=== PATIENT | male | born 1960 | race Hispanic/Latino ===

== ENCOUNTER 2020-08-11 06:04 | Emergency (ER) | payer MEDICARE ==
[2020-08-11 06:25] VITALS: BP 131/76
[2020-08-11] MEDS ORDERED: dexAMETHasone 20 MG/5 ML VIAL IM ONE (06:42)
[2020-08-11] MEDS ORDERED: IBUPROFEN ORAL LIQD 100 MG/5 ML ORAL.LIQD PO ONE (06:43)
--- NOTE | 2020-08-11 06:59 | Emergency Department Report ---
ED ENT HPI - General Chief complaint: Sore Throat Stated complaint: SWOLLEN THROAT Time Seen by Provider: 08/11/20 06:55 Source: patient Mode of arrival: Stretcher Limitations: No Limitations - History of Present Illness Initial comments: Patient 60-year-old male who presents for sore throat x3 days. Patient denies fevers or chills. States 510 burning pain with swallowing. There is no wheezing no stridor. No nausea vomiting. This is a recurrent problem for this patient MD complaint: sore throat - Related Data Previous Rx's Medication Instructions Recorded Last Taken Type Amoxicillin/Potassium Clav 1 each PO BID 10 Days #20 tablet 08/11/20 Unknown Rx [Augmentin 875-125 Tablet] Ibuprofen [Motrin 800 MG tab] 800 mg PO Q8HR PRN #30 tablet 08/11/20 Unknown Rx predniSONE [Deltasone] 40 mg PO DAILY 5 Days #10 tablet 08/11/20 Unknown Rx Allergies Allergy/AdvReac Type Severity Reaction Status Date / Time morphine Allergy Diarrhea Verified 08/11/20 06:26 ED Dental HPI - General Chief complaint: Sore Throat Stated complaint: SWOLLEN THROAT Time Seen by Provider: 08/11/20 06:55 Source: patient Mode of arrival: Stretcher Limitations: No Limitations - Related Data Previous Rx's Medication Instructions Recorded Last Taken Type Amoxicillin/Potassium Clav 1 each PO BID 10 Days #20 tablet 08/11/20 Unknown Rx [Augmentin 875-125 Tablet] Ibuprofen [Motrin 800 MG tab] 800 mg PO Q8HR PRN #30 tablet 08/11/20 Unknown Rx predniSONE [Deltasone] 40 mg PO DAILY 5 Days #10 tablet 08/11/20 Unknown Rx Allergies Allergy/AdvReac Type Severity Reaction Status Date / Time morphine Allergy Diarrhea Verified 08/11/20 06:26 ED Review of Systems ROS: Stated complaint: SWOLLEN THROAT Other details as noted in HPI Constitutional: malaise Eyes: denies: eye pain, eye discharge, vision change ENT: throat pain Respiratory: denies: cough, shortness of breath, wheezing Cardiovascular: denies: chest pain, palpitations Endocrine: no symptoms reported Gastrointestinal: denies: abdominal pain, nausea, vomiting, diarrhea Genitourinary: denies: urgency, dysuria, frequency, discharge Musculoskeletal: denies: back pain, joint swelling, arthralgia Skin: denies: rash, lesions Neurological: denies: headache, weakness, paresthesias Psychiatric: denies: anxiety, depression Hematological/Lymphatic: denies: easy bleeding, easy bruising ED Past Medical Hx - Past Medical History Previous Medical History?: Yes Hx Hypertension: Yes Hx COPD: Yes - Surgical History Hx Cholecystectomy: Yes - Social History Smoking Status: Current Every Day Smoker Substance Use Type: None - Medications Home Medications: Home Medications Medication Instructions Recorded Confirmed Last Taken Type Amoxicillin/Potassium Clav 1 each PO BID 10 Days #20 tablet 08/11/20 Unknown Rx [Augmentin 875-125 Tablet] Ibuprofen [Motrin 800 MG tab] 800 mg PO Q8HR PRN #30 tablet 08/11/20 Unknown Rx predniSONE [Deltasone] 40 mg PO DAILY 5 Days #10 tablet 08/11/20 Unknown Rx ED Physical Exam - General Limitations: No Limitations General appearance: alert, in no apparent distress - Head Head exam: Present: atraumatic, normocephalic - Eye Eye exam: Present: normal appearance, EOMI Pupils: Present: normal accommodation - ENT ENT exam: Present: mucous membranes moist, TM's normal bilaterally, normal external ear exam - Expanded ENT Exam Expanded Throat exam: Positive: tonsillar erythema, tonsillomegaly, tonsillar exudate, other (uvula midline no stridor no wheezing ). Negative: R peritonsillar mass, L peritonsillar mass - Neck Neck exam: Present: normal inspection, full ROM, lymphadenopathy. Absent: tenderness - Respiratory Respiratory exam: Present: normal lung sounds bilaterally. Absent: respiratory distress, wheezes, stridor, chest wall tenderness - Cardiovascular Cardiovascular Exam: Present: regular rate, normal rhythm, normal heart sounds. Absent: systolic murmur, diastolic murmur, rubs, gallop - GI/Abdominal GI/Abdominal exam: Present: soft, normal bowel sounds. Absent: distended, tenderness, bruit, hernia - Rectal Rectal exam: Present: deferred - Extremities Exam Extremities exam: Present: normal inspection, full ROM - Back Exam Back exam: Present: normal inspection, full ROM. Absent: CVA tenderness (R), CVA tenderness (L) - Neurological Exam Neurological exam: Present: alert, oriented X3 - Psychiatric Psychiatric exam: Present: normal affect, normal mood - Skin Skin exam: Present: warm, dry, intact, normal color. Absent: rash ED Course Vital Signs 08/11/20 06:15 Temperature 98 F Pulse Rate 99 H Respiratory 18 Rate Blood Pressure 131/76 O2 Sat by Pulse 96 Oximetry ED Medical Decision Making - Medical Decision Making This is pharyngitis with exudate. No peritonsillar abscess. Plan Augmentin ibuprofen follow-up with primary care doctor in 2 to 3 days patient given referral to ENT in 2 to 3 days., there is no peritonsillar abscess, rapid strep pending, airway is patent there is no stridor no wheezing patient verbalized agreement and understanding with discharge plan, patient DC'd in stable condition at this time Critical care attestation.: If time is entered above; I have spent that time in minutes in the direct care of this critically ill patient, excluding procedure time. ED Disposition Clinical Impression: Pharyngitis Qualifiers: Pharyngitis/tonsillitis etiology: unspecified etiology Qualified Code(s): J02.9 - Acute pharyngitis, unspecified Disposition: DC-01 TO HOME OR SELFCARE Is pt being admited?: No Does the pt Need Aspirin: No Condition: Stable Instructions: Pharyngitis Prescriptions: Amoxicillin/Potassium Clav [Augmentin 875-125 Tablet] 1 each PO BID 10 Days #20 tablet predniSONE [Deltasone] 40 mg PO DAILY 5 Days #10 tablet Ibuprofen [Motrin 800 MG tab] 800 mg PO Q8HR PRN #30 tablet PRN Reason: pain Referrals: DEVANTE OLIVAREZ MD [Staff Physician] - 3-5 Days CHRIS CHAPA MD [Referring] - 3-5 Days Forms: Work/School Release Form(ED) Time of Disposition: 07:03
== END 2020-08-11 07:33 | disposition home or self-care (01) ==
LOC: ED 06:04
DX: J02.9 Acute pharyngitis, unspecified (principal); I10 Essential (primary) hypertension; J44.9 Chronic obstructive pulmonary disease, unspecified; F17.200 Nicotine dependence, unspecified, uncomplicated; Z79.1 Long term (current) use of non-steroidal anti-inflammatories (NSAID); Z79.2 Long term (current) use of antibiotics; Z79.899 Other long term (current) drug therapy; Z88.8 Allergy status to other drugs, medicaments and biological substances
CPT/HCPCS: 96372; 99283; J1100

== ENCOUNTER 2020-10-14 13:47 | Observation (INO) | payer MEDICARE ==
--- NOTE | 2020-10-14 15:31 | Event Note ---
ED Screening Note ED Screening Note: was admitted, left AMA last night wound to right hand, went to OR was supposed to receive IV abx for a couple more days and likely be discharged on IV abx upon chart review This initial assessment/diagnostic orders/clinical plan/treatment(s) is/are subject to change based on patients health status, clinical progression and re- assessment by fellow clinical providers in the ED. Further treatment and workup at subsequent clinical providers discretion. Patient/guardian urged not to elope from the ED as their condition may be serious if not clinically assessed and managed. Initial orders include: labs
[2020-10-14 16:03] LABS: Basophils # (Auto) 0.1 K/mm3 (0.0-0.1); Basophils % (Auto) 0.8 % (0.0-1.8); Eosinophils # (Auto) 0.2 K/mm3 (0.0-0.4); Eosinophils % (Auto) 2.5 % (0.0-4.3); Hematocrit 39.5 % (35.5-45.6); Hemoglobin 13.7 gm/dl (11.8-15.2); Lymphocytes # (Auto) 1.9 K/mm3 (1.2-5.4); Lymphocytes % (Auto) 23.8 % (13.4-35.0); Mean Corpuscular HGB Conc 35 % (32-34); Mean Corpuscular Volume 92 fl (84-94); Monocytes # (Auto) 0.6 K/mm3 (0.0-0.8); Monocytes % (Auto) 7.2 % (0.0-7.3); Platelet Count 305 K/mm3 (140-440); Red Blood Count 4.31 M/mm3 (3.65-5.03); Red Cell Distribution Width 15.3 % (13.2-15.2)
[2020-10-14 16:23] LABS: Alanine Aminotransferase 50 units/L (7-56); Albumin 4.6 g/dL (3.9-5); Blood Urea Nitrogen 10 mg/dL (9-20); Calcium 9.7 mg/dL (8.4-10.2); Hemolysis Index 3
[2020-10-14 16:32] LABS: BUN/Creatinine Ratio 17
[2020-10-14] MEDS ORDERED: VANCOMYCIN/NS 1 GM/250 ML 1 GM/250 ML BAG IV ONE (17:52)
--- NOTE | 2020-10-14 17:52 | Emergency Department Report ---
ED General Adult HPI - General Chief complaint: Extremity Injury, Upper Stated complaint: RT HAND INJURY Time Seen by Provider: 10/14/20 15:30 Source: patient Mode of arrival: Ambulatory Limitations: No Limitations - History of Present Illness Initial comments: Patient is 60 years old male with history of hypertension COPD. Patient was admitted to the hospital 3 days ago have a diagnostic of necrotizing fasciitis to the right hand and forearm. Patient had an operation by Dr. Garsia, and started on IV antibiotic. Patient was taking her cefepime and clindamycin however infectious disease changed medication to vancomycin only. Patient decided to sign AGAINST MEDICAL ADVICE last night but he returned back. Patient denied any new symptoms. Patient specifically denied any fever or chills. He stated that the pain is getting better from last time. - Related Data Home Medications Medication Instructions Recorded Confirmed Last Taken Buprenorphine HCl/Naloxone HCl 1 film PO BID 10/13/20 10/13/20 Unknown [Buprenorp-Nalox 8-2 mg Sl Film] Cyanocobalamin (Vitamin B-12) 2,500 mcg PO 10/13/20 Unknown [Vitamin B12] DULoxetine [Cymbalta] 60 mg PO QDAY 10/13/20 10/13/20 Unknown Docusate Sodium [Stool Softener] 50 mg PO QDAY 10/13/20 10/13/20 Unknown Lisinopril [Zestril TAB] 20 mg PO QDAY 10/13/20 10/13/20 Unknown Omeprazole 40 mg PO BID 10/13/20 10/13/20 Unknown Trazodone HCl [traZODone] 450 mg PO QHS 10/13/20 10/13/20 Unknown amLODIPine [Norvasc] 10 mg PO DAILY 10/13/20 10/13/20 Unknown cephALEXin [Keflex] 500 mg PO Q8HR 10/13/20 10/13/20 Unknown Previous Rx's Medication Instructions Recorded Last Taken Type Amoxicillin/Potassium Clav 1 each PO BID 10 Days #20 tablet 08/11/20 Unknown Rx [Augmentin 875-125 Tablet] Ibuprofen [Motrin 800 MG tab] 800 mg PO Q8HR PRN #30 tablet 08/11/20 Unknown Rx predniSONE [Deltasone] 40 mg PO DAILY 5 Days #10 tablet 08/11/20 Unknown Rx Allergies Allergy/AdvReac Type Severity Reaction Status Date / Time morphine Allergy Diarrhea Verified 10/14/20 15:24 ED Review of Systems ROS: Stated complaint: RT HAND INJURY Other details as noted in HPI Comment: All other systems reviewed and negative Constitutional: denies: chills, fever Respiratory: denies: cough, shortness of breath, SOB with exertion, SOB at rest Cardiovascular: denies: chest pain, palpitations Gastrointestinal: denies: abdominal pain, nausea, vomiting Musculoskeletal: denies: back pain Neurological: denies: headache, weakness ED Past Medical Hx - Past Medical History Previous Medical History?: Yes Hx Hypertension: Yes Hx Heart Attack/AMI: No Hx Congestive Heart Failure: Yes Hx Diabetes: No Hx Liver Disease: Yes (report recent diagnosis of "liver infection." Details unknown.) Hx Renal Disease: No Hx Asthma: Yes Hx COPD: Yes - Surgical History Past Surgical History?: Yes Hx Cholecystectomy: Yes - Social History Smoking Status: Current Every Day Smoker Substance Use Type: None - Medications Home Medications: Home Medications Medication Instructions Recorded Confirmed Last Taken Type Amoxicillin/Potassium Clav 1 each PO BID 10 Days #20 tablet 08/11/20 Unknown Rx [Augmentin 875-125 Tablet] Ibuprofen [Motrin 800 MG tab] 800 mg PO Q8HR PRN #30 tablet 08/11/20 Unknown Rx predniSONE [Deltasone] 40 mg PO DAILY 5 Days #10 tablet 08/11/20 Unknown Rx Buprenorphine HCl/Naloxone HCl 1 film PO BID 10/13/20 10/13/20 Unknown History [Buprenorp-Nalox 8-2 mg Sl Film] Cyanocobalamin (Vitamin B-12) 2,500 mcg PO 10/13/20 Unknown History [Vitamin B12] DULoxetine [Cymbalta] 60 mg PO QDAY 10/13/20 10/13/20 Unknown History Docusate Sodium [Stool Softener] 50 mg PO QDAY 10/13/20 10/13/20 Unknown History Lisinopril [Zestril TAB] 20 mg PO QDAY 10/13/20 10/13/20 Unknown History Omeprazole 40 mg PO BID 10/13/20 10/13/20 Unknown History Trazodone HCl [traZODone] 450 mg PO QHS 10/13/20 10/13/20 Unknown History amLODIPine [Norvasc] 10 mg PO DAILY 10/13/20 10/13/20 Unknown History cephALEXin [Keflex] 500 mg PO Q8HR 10/13/20 10/13/20 Unknown History ED Physical Exam - General Limitations: No Limitations General appearance: alert, in no apparent distress - Head Head exam: Present: atraumatic, normocephalic, normal inspection - Eye Eye exam: Present: normal appearance, PERRL - ENT ENT exam: Present: normal exam, normal orophraynx, mucous membranes moist - Neck Neck exam: Present: normal inspection, full ROM. Absent: tenderness, men ingismus - Respiratory Respiratory exam: Present: normal lung sounds bilaterally - Cardiovascular Cardiovascular Exam: Present: regular rate, normal rhythm, normal heart sounds - GI/Abdominal GI/Abdominal exam: Present: soft, normal bowel sounds. Absent: distended, tenderness, guarding, rebound, rigid, organomegaly, mass, bruit, pulsatile mass, hernia - Extremities Exam Extremities exam: Present: other (Wound dressing to the right hand. No discharge.) ED Medical Decision Making - Lab Data Result diagrams: 10/14/20 15:33 10/14/20 15:33 - Medical Decision Making Patient is 60 years old male with history of hypertension COPD. Patient was ad mitted to the hospital 3 days ago have a diagnostic of necrotizing fasciitis to the right hand and forearm. Patient had an operation by Dr. Garsia, and started on IV antibiotic. Patient was taking her cefepime and clindamycin however infectious disease changed medication to vancomycin only. Patient decided to sign AGAINST MEDICAL ADVICE last night but he returned back. Patient denied any new symptoms. Patient specifically denied any fever or chills. He stated that the pain is getting better from last time. Labs reviewed and is unremarkable. Patient started on vancomycin 1 g IV. I discussed the patient with Dr. Wisdom, he agreed to admit the patient to medical service for further management. Critical care attestation.: If time is entered above; I have spent that time in minutes in the direct care of this critically ill patient, excluding procedure time. ED Disposition Clinical Impression: Abscess of right hand including fingers, Cellulitis of right upper limb Disposition: OP ADMIT IP TO THIS HOSP Is pt being admited?: Yes Condition: Stable Referrals: PRIMARY CARE,MD [Primary Care Provider] - 3-5 Days
[2020-10-14] MEDS ORDERED: ACETAMINOPHEN 325 MG TAB PO PRN (18:01)
[2020-10-14] MEDS ORDERED: ONDANSETRON 4 MG/2 ML INJ IV PRN (18:01)
[2020-10-14] MEDS ORDERED: IBUPROFEN 600 MG TAB PO PRN (18:01)
--- NOTE | 2020-10-14 18:01 | History and Physical Report ---
History of Present Illness Chief complaint: I need to come back and get checked out History of present illness: 60 YO Male with HTN, COPD, Obesity, Right Hand necrotizing soft tissue infection, GERD, Nicotine Dependence, CHF presents to ED for evaluation. Patient reports "my head is still infected". Patient states that he signed out AGAINST MEDICAL ADVICE yesterday but has returned to hospital for completion of care. Patient transported to [facility] via private vehicle for further care and evaluation. Patient seen and evaluated in the emergency department. All lab and imaging studies reviewed. Patient found to have right hand cellulitis secondary to resolved necrotizing soft tissue infection. Patient placed in observation status and admitted to medical floor. Patient treated with IV antibiotic therapy. Patient denies fever, chills, chest pain, palpitation, productive cough, skin rash, recent ill contacts, hand trauma, or known exposure to COVID-19. Patient did not disclose why he left hospital prior to completion of treatment plan. Past History Past Medical History: COPD, GERD, hypertension, other (See HPI) Past Surgical History: cholecystectomy, Other (Hand surgery) Social history: , smoking. denies: alcohol abuse, prescription drug abuse Family history: diabetes, hypertension Medications and Allergies Allergies Allergy/AdvReac Type Severity Reaction Status Date / Time morphine AdvReac Diarrhea Verified 10/14/20 18:21 Home Medications Medication Instructions Recorded Confirmed Last Taken Type Amoxicillin/Potassium Clav 1 each PO BID 10 Days #20 tablet 08/11/20 Unknown Rx [Augmentin 875-125 Tablet] Ibuprofen [Motrin 800 MG tab] 800 mg PO Q8HR PRN #30 tablet 08/11/20 Unknown Rx predniSONE [Deltasone] 40 mg PO DAILY 5 Days #10 tablet 08/11/20 Unknown Rx Buprenorphine HCl/Naloxone HCl 1 film PO BID 10/13/20 10/13/20 Unknown History [Buprenorp-Nalox 8-2 mg Sl Film] Cyanocobalamin (Vitamin B-12) 2,500 mcg PO 10/13/20 Unknown History [Vitamin B12] DULoxetine [Cymbalta] 60 mg PO QDAY 10/13/20 10/13/20 Unknown History Docusate Sodium [Stool Softener] 50 mg PO QDAY 10/13/20 10/13/20 Unknown History Lisinopril [Zestril TAB] 20 mg PO QDAY 10/13/20 10/13/20 Unknown History Omeprazole 40 mg PO BID 10/13/20 10/13/20 Unknown History Trazodone HCl [traZODone] 450 mg PO QHS 10/13/20 10/13/20 Unknown History amLODIPine [Norvasc] 10 mg PO DAILY 10/13/20 10/13/20 Unknown History cephALEXin [Keflex] 500 mg PO Q8HR 10/13/20 10/13/20 Unknown History Active Meds: Active Medications Vancomycin HCl (Vancomycin/Ns 1 Gm/250 Ml) 1 gm in 250 mls @ 167.007 mls/hr IV ONCE ONE; Protocol Stop: 10/14/20 19:21 Review of Systems Constitutional: no weight loss, no weight gain, no fever, no chills, no sweats Ears, nose, mouth and throat: no ear pain, no ear discharge, no tinnitis, no nose pain, no nasal congestion, no sinus pressure Cardiovascular: no chest pain, no rapid/irregular heart beat, no edema, no lightheadedness Respiratory: no cough, no excessive sputum, no dyspnea on exertion Gastrointestinal: no nausea, no diarrhea, no change in bowel habits, no hematemesis Genitourinary Male: no hematuria, no flank pain, no urinary hesitancy, no incontinence Rectal: no pain, no bleeding Musculoskeletal: no neck pain, no low back pain Integumentary: no rash, no redness, no wounds, no jaundice Neurological: no transient paralysis, no paralysis, no weakness, no numbness, no seizures, no tremors Psychiatric: no sleep disturbances, no change in appetite, no disorientation, no hallucinations Endocrine: no heat intolerance, no polyphagia, no excessive thirst, no polyuria Hematologic/Lymphatic: no easy bruising, no easy bleeding Allergic/Immunologic: no urticaria, no wheezing Exam - Constitutional General appearance: Present: mild distress, obese - EENT Eyes: Present: PERRL ENT: hearing intact, clear oral mucosa - Neck Neck: Present: supple, normal ROM - Respiratory Respiratory effort: normal Respiratory: bilateral: CTA - Cardiovascular Heart Sounds: Present: S1 & S2. Absent: rub, click - Extremities Extremities: pulses symmetrical, No edema Extremity abnormal: other (Right upper extremity hand dressing clean dry and intact, pulses 2+ equal bilaterally,) Peripheral Pulses: within normal limits - Abdominal General gastrointestinal: Present: soft, non-tender, non-distended, normal bowel sounds Male genitourinary: Present: normal - Integumentary Integumentary: Present: clear, warm, dry - Musculoskeletal Musculoskeletal: gait normal, strength equal bilaterally - Psychiatric Psychiatric: appropriate mood/affect, intact judgment & insight - Neurologic Neurologic: CNII-XII intact, moves all extremities Results - Labs CBC & Chem 7: 10/14/20 15:33 10/14/20 15:33 Labs: Abnormal lab results 10/14/20 10/14/20 Range/Units 15:33 15:33 MCHC 35 H (32-34) % RDW 15.3 H (13.2-15.2) % Creatinine 0.6 L (0.8-1.3) mg/dL Alkaline Phosphatase 151 H (35-129) units/L Assessment and Plan - Patient Problems (1) Cellulitis of right upper limb Current Visit: Yes Status: Acute Plan to address problem: IV antibiotic therapy, supportive care, infectious disease service reconsulted for antibiotic recommendations, supportive care. (2) Nicotine dependence Current Visit: Yes Status: Acute Qualifiers: Nicotine product type: cigarettes Substance use status: in withdrawal Qualified Code(s): F17.213 - Nicotine dependence, cigarettes, with withdrawal Plan to address problem: Smoking cessation counseling, supportive care, behavior change counseling, +15 minutes. (3) Hypertension Current Visit: Yes Status: Acute Qualifiers: Hypertension type: essential hypertension Qualified Code(s): I10 - E ssential (primary) hypertension Plan to address problem: Monitor blood pressure every shift, continue medical management. (4) Obesity hypoventilation syndrome Current Visit: Yes Status: Acute Plan to address problem: Balanced diet, increase physical activity discharge, outpatient pulmonary follow-up for sleep study. (5) GERD (gastroesophageal reflux disease) Current Visit: Yes Status: Acute Qualifiers: Esophagitis presence: without esophagitis Qualified Code(s): K21.9 - Gastro-esophageal reflux disease without esophagitis Plan to address problem: PPI therapy, supportive care. (6) DVT prophylaxis Current Visit: No Status: Acute Plan to address problem: SCD to bilateral lower extremities while in bed, patient is ambulatory.
[2020-10-14] MEDS ORDERED: VANCOMYCIN PHARMACY TO DOSE IV SCH (19:00)
[2020-10-14] MEDS ORDERED: TRAZODONE HCL 300 MG PO SCH (21:00)
[2020-10-14] MEDS: traZODone 100 MG TAB PO SCH (21:30)
[2020-10-14] MEDS: PANTOPRAZOLE 40 MG TAB PO SCH (21:31)
[2020-10-14] MEDS: BUPRENORPHINE 2 MG/NALOXONE 0.5 MG FILM SL SCH (21:32)
[2020-10-14] MEDS ORDERED: NON-FORMULARY EACH (Omeprazole [Omeprazole] 40 MG Capsule.Dr) PO SCH (22:00)
[2020-10-14] MEDS ORDERED: [UNRECOGNIZED DRUG - OTHER] PO SCH (22:00)
[2020-10-14] MEDS ORDERED: NALOXONE HCL PO SCH (22:00)
[2020-10-14] MEDS ORDERED: BUPRENORPHINE HCL PO SCH (22:00)
[2020-10-15 04:24] LABS: Basophils % (Auto) 0.7 % (0.0-1.8); Eosinophils # (Auto) 0.3 K/mm3 (0.0-0.4); Eosinophils % (Auto) 5.5 % (0.0-4.3); Hematocrit 36.8 % (35.5-45.6); Hemoglobin 12.8 gm/dl (11.8-15.2); Lymphocytes # (Auto) 2.6 K/mm3 (1.2-5.4); Lymphocytes % (Auto) 41.1 % (13.4-35.0); Mean Corpuscular HGB Conc 35 % (32-34); Mean Corpuscular Volume 92 fl (84-94); Monocytes # (Auto) 0.5 K/mm3 (0.0-0.8); Monocytes % (Auto) 8.4 % (0.0-7.3); Platelet Count 284 K/mm3 (140-440); Red Cell Distribution Width 15.1 % (13.2-15.2)
[2020-10-15] MEDS ORDERED: NON-FORMULARY EACH (Lisinopril [Zestril Tab] 30 MG Tablet) PO SCH (08:00)
[2020-10-15] MEDS ORDERED: DOCUSATE SODIUM 50 MG PO SCH (08:00)
[2020-10-15] MEDS: VANCOMYCIN 1,500 MG in SODIUM CHLORIDE 0.9% 500 ML 500 ML IV SCH ×3 (09:02→15:55)
[2020-10-15] MEDS: predniSONE 20 MG TAB PO SCH (09:03)
[2020-10-15] MEDS: DOCUSATE SODIUM 100 MG/10 ML ORAL LIQD PO SCH (09:03)
[2020-10-15] MEDS: DULoxetine 30 MG CAP PO SCH (09:03)
[2020-10-15] MEDS: PANTOPRAZOLE 40 MG TAB PO SCH ×2 (09:04→21:10)
[2020-10-15] MEDS: amLODIPine 10 MG TAB PO SCH (09:04)
[2020-10-15] MEDS: LISINOPRIL 20 MG TAB PO SCH (09:04)
[2020-10-15] MEDS: BUPRENORPHINE 2 MG/NALOXONE 0.5 MG FILM SL SCH (09:33)
[2020-10-15] MEDS: oxyCODONE /ACETAMINOPHEN 5-325MG TAB PO PRN ×2 (11:43→18:43)
[2020-10-15] MEDS: NICOTINE 21 MG/24 HR PATCH TD SCH (11:43)
--- NOTE | 2020-10-15 12:39 | Consultation ---
History of Present Illness - Reason for Consult Consult date: 10/15/20 Right hand cellulitis Requesting physician: ANDER RODRIGUEZ - History of Present Illness 60 years old male with history hypertension, COPD, obesity, GERD, tobacco abuse, CHF, admitted on 60 YO Male with HTN, COPD, Obesity, Right Hand necrotizing soft tissue infection, GERD, Nicotine Dependence, CHF presents to ED for evaluation. Patient reports "my head is still infected". Patient states that he signed out AGAINST MEDICAL ADVICE yesterday but has returned to hospital for completion of care. Patient transported to [facility] via private vehicle for further care and evaluation. Patient seen and evaluated in the emergency department. All lab and imaging studies reviewed. Patient found to have right hand cellulitis secondary to resolved necrotizing soft tissue infection. Patient placed in ob servation status and admitted to medical floor. Patient treated with IV antibiotic therapy. Patient denies fever, chills, chest pain, palpitation, productive cough, skin rash, recent ill contacts, hand trauma, or known exposure to COVID-19. Patient did not disclose why he left hospital prior to completion of treatment plan. Past History Past Medical History: COPD, GERD, hypertension, other (See HPI) Past Surgical History: cholecystectomy, Other (Hand surgery) Social history: , smoking. denies: alcohol abuse, prescription drug abuse Family history: diabetes, hypertension Medications and Allergies Allergies Allergy/AdvReac Type Severity Reaction Status Date / Time morphine AdvReac Diarrhea Verified 10/14/20 18:21 Home Medications Medication Instructions Recorded Confirmed Last Taken Type Amoxicillin/Potassium Clav 1 each PO BID 10 Days #20 tablet 08/11/20 Unknown Rx [Augmentin 875-125 Tablet] Ibuprofen [Motrin 800 MG tab] 800 mg PO Q8HR PRN #30 tablet 08/11/20 Unknown Rx predniSONE [Deltasone] 40 mg PO DAILY 5 Days #10 tablet 08/11/20 Unknown Rx Buprenorphine HCl/Naloxone HCl 1 film PO BID 10/13/20 10/13/20 Unknown History [Buprenorp-Nalox 8-2 mg Sl Film] Cyanocobalamin (Vitamin B-12) 2,500 mcg PO 10/13/20 Unknown History [Vitamin B12] DULoxetine [Cymbalta] 60 mg PO QDAY 10/13/20 10/13/20 Unknown History Docusate Sodium [Stool Softener] 50 mg PO QDAY 10/13/20 10/13/20 Unknown History Lisinopril [Zestril TAB] 20 mg PO QDAY 10/13/20 10/13/20 Unknown History Omeprazole 40 mg PO BID 10/13/20 10/13/20 Unknown History Trazodone HCl [traZODone] 450 mg PO QHS 10/13/20 10/13/20 Unknown History amLODIPine [Norvasc] 10 mg PO DAILY 10/13/20 10/13/20 Unknown History cephALEXin [Keflex] 500 mg PO Q8HR 10/13/20 10/13/20 Unknown History Active Meds: Active Medications Acetaminophen (Acetaminophen 325 Mg Tab) 650 mg PO Q4H PRN PRN Reason: Pain MILD(1-3)/Fever >100.5/ROBLERO Amlodipine Besylate (Amlodipine 10 Mg Tab) 10 mg PO DAILY [facility] Last Admin: 10/15/20 09:04 Dose: 10 mg Documented by: Docusate Sodium (Docusate Sodium 100 Mg/10 Ml Oral Liqd) 50 mg PO QDAY [facility] Last Admin: 10/15/20 09:03 Dose: 50 mg Documented by: Duloxetine HCl (Duloxetine 30 Mg Cap) 60 mg PO QDAY [facility] Last Admin: 10/15/20 09:03 Dose: 60 mg Documented by: Vancomycin HCl 1,500 mg/ (Sodium Chloride) 530 mls @ 265 mls/hr IV Q8H [facility] Last Admin: 10/15/20 09:02 Dose: 265 mls/hr Documented by: Ibuprofen (Ibuprofen 600 Mg Tab) 600 mg PO Q6H PRN PRN Reason: Pain, Mild (1-3) Last Admin: 10/14/20 20:51 Dose: 600 mg Documented by: Lisinopril (Lisinopril 20 Mg Tab) 20 mg PO QDAY [facility] Last Admin: 10/15/20 09:04 Dose: 20 mg Documented by: Nicotine (Nicotine 21 Mg/24 Hr Patch) 21 mg TD QDAY [facility] Last Admin: 10/15/20 11:43 Dose: 21 mg Documented by: Ondansetron HCl (Ondansetron 4 Mg/2 Ml Inj) 4 mg IV Q8H PRN PRN Reason: Nausea And Vomiting Oxycodone/Acetaminophen (Oxycodone /Acetaminophen 5-325mg Tab) 2 tab PO Q6H PRN PRN Reason: Pain, Moderate (4-6) Last Admin: 10/15/20 11:43 Dose: 2 tab Documented by: Pantoprazole Sodium (Pantoprazole 40 Mg Tab) 40 mg PO BID [facility] Last Admin: 10/15/20 09:04 Dose: 40 mg Documented by: Prednisone (Prednisone 20 Mg Tab) 40 mg PO DAILY [facility] Last Admin: 10/15/20 09:03 Dose: 40 mg Documented by: Sodium Chloride (Sodium Chloride 0.9% 10 Ml Flush Syringe) 10 ml IV BID [facility] Last Admin: 10/15/20 09:04 Dose: 10 ml Documented by: Sodium Chloride (Sodium Chloride 0.9% 10 Ml Flush Syringe) 10 ml IV PRN PRN PRN Reason: LINE FLUSH Trazodone HCl (Trazodone 100 Mg Tab) 450 mg PO QHS [facility] Last Admin: 10/14/20 21:30 Dose: 450 mg Documented by: Physical Examination - Constitutional Vitals: Vital Signs Temp Pulse Resp BP Pulse Ox 98.4 F 95 H 18 122/66 96 10/15/20 12:17 10/15/20 12:17 10/15/20 12:17 10/15/20 12:17 10/15/20 12:17 Temperature -Last 24 Hours Temperature 98.4 F Temperature 98.6 F Temperature 97.9 F Temperature 97.4 F Temperature 98.6 F Results - Labs CBC & Chem 7: 10/15/20 03:28 10/14/20 15:33 Labs: Abnormal lab results 10/14/20 10/14/20 10/14/20 Range/Units 15:33 15:33 23:22 MCHC 35 H (32-34) % RDW 15.3 H (13.2-15.2) % Lymph % (Auto) (13.4-35.0) % [place] % (Auto) (0.0-7.3) % Eos % (Auto) (0.0-4.3) % Creatinine 0.6 L (0.8-1.3) mg/dL POC Glucose 107 H (70-105) mg/dL Alkaline Phosphatase 151 H (35-129) units/L 10/15/20 Range/Units 03:28 MCHC 35 H (32-34) % RDW (13.2-15.2) % Lymph % (Auto) 41.1 H (13.4-35.0) % [place] % (Auto) 8.4 H (0.0-7.3) % Eos % (Auto) 5.5 H (0.0-4.3) % Creatinine (0.8-1.3) mg/dL POC Glucose (70-105) mg/dL Alkaline Phosphatase (35-129) units/L
--- NOTE | 2020-10-15 12:44 | Progress Note ---
Assessment and Plan 10/11/2020 blood culture: No growth 10/12/2020 right hand surgical culture: Staph aureus A/P: 60-year-old male with hypertension, smoking history admitted with: #Sepsis secondary to right hand abscess and cellulitis: Status post I&D in OR. Culture growing staph aureus. #Tobacco abuse: Smoking cessation was advised. Recs: Patient left AMA yesterday and was readmitted overnight Continue IV vancomycin, monitor trough and creatinine Follow-up final cultures. Referral for IV Dalvance sent to [facility] by Dr. Herrera continue wound care Needs tetanus prophylaxis MD [facility] ([facility]) Office [phone] Subjective Date of service: 10/15/20 Principal diagnosis: Hand abscess Interval history: Patient reported feeling better, complaining of severe lower back pain. No fever. Objective - Exam Narrative Exam: General appearance: Alert in NAD pleasant Eyes: anicteric sclerae, moist conjunctivae; no lid-lag; PERRLA HENT: Normocephalic, Atraumatic; normal external ears, nares open, oropharynx clear with moist mucous membranes and no oral thrush Neck: supple, tracheal midline, no JVD Lungs: CTA, with normal respiratory effort and no intercostal retractions CV: RRR no murmur Abdomen: Soft, non-tender; no masses or hepatosplenomegaly Extremities: Right hand covered with dressing. Skin: No rash. Psych: no agitated Neuro: alert and oriented x 3. Moving all extermities - Constitutional Vitals: Vital Signs Temp Pulse Resp BP Pulse Ox 98.4 F 95 H 18 122/66 96 10/15/20 12:17 10/15/20 12:17 10/15/20 12:17 10/15/20 12:17 10/15/20 12:17 Temperature -Last 24 Hours Temperature 98.4 F Temperature 98.6 F Temperature 97.9 F Temperature 97.4 F Temperature 98.6 F - Labs CBC & Chem 7: 10/15/20 03:28 10/14/20 15:33 Labs: Abnormal lab results 10/14/20 10/14/20 10/14/20 Range/Units 15:33 15:33 23:22 MCHC 35 H (32-34) % RDW 15.3 H (13.2-15.2) % Lymph % (Auto) (13.4-35.0) % [place] % (Auto) (0.0-7.3) % Eos % (Auto) (0.0-4.3) % Creatinine 0.6 L (0.8-1.3) mg/dL POC Glucose 107 H (70-105) mg/dL Alkaline Phosphatase 151 H (35-129) units/L 10/15/20 Range/Units 03:28 MCHC 35 H (32-34) % RDW (13.2-15.2) % Lymph % (Auto) 41.1 H (13.4-35.0) % [place] % (Auto) 8.4 H (0.0-7.3) % Eos % (Auto) 5.5 H (0.0-4.3) % Creatinine (0.8-1.3) mg/dL POC Glucose (70-105) mg/dL Alkaline Phosphatase (35-129) units/L
--- NOTE | 2020-10-15 14:14 | Progress Note ---
Assessment and Plan Assessment and Plan - Patient Problems (1) Cellulitis of right upper limb Current Visit: Yes Status: Acute Plan to address problem: IV antibiotic therapy, supportive care, infectious disease service reconsulted for antibiotic recommendations, supportive care. Continue IV vancomycin, monitor trough and creatinine Follow-up final cultures. Referral for IV Dalvance sent to [facility] by Dr. Herrera continue wound care Needs tetanus prophylaxis (2) Nicotine dependence Current Visit: Yes Status: Acute Qualifiers: Nicotine product type: cigarettes Substance use status: in withdrawal Qualified Code(s): F17.213 - Nicotine dependence, cigarettes, with withdrawal Plan to address problem: Smoking cessation counseling, supportive care, behavior change counseling, +15 minutes. Nicoderm patch for now (3) Hypertension Current Visit: Yes Status: Acute Qualifiers: Hypertension type: essential hypertension Qualified Code(s): I10 - Essential (primary) hypertension Plan to address problem: Monitor blood pressure every shift, continue medical management. (4) Obesity hypoventilation syndrome Current Visit: Yes Status: Acute Plan to address problem: Balanced diet, increase physical activity discharge, outpatient pulmonary follow-up for sleep study. (5) GERD (gastroesophageal reflux disease) Current Visit: Yes Status: Acute Qualifiers: Esophagitis presence: without esophagitis Qualified Code(s): K21.9 - Gastro-esophageal reflux disease without esophagitis Plan to address problem: PPI therapy, supportive care. (6) DVT prophylaxis Current Visit: No Status: Acute Plan to address problem: SCD to bilateral lower extremities while in bed, patient is ambulatory. Subjective Date of service: 10/15/20 Principal diagnosis: Hand abscess Objective - Constitutional Vitals: Vital Signs - 12hr 10/15/20 10/15/20 10/15/20 04:19 07:17 09:04 Temperature 97.9 F 98.6 F Pulse Rate 83 88 88 Respiratory 20 18 Rate Blood Pressure 115/65 134/80 134/80 O2 Sat by Pulse 94 94 Oximetry 10/15/20 10/15/20 10/15/20 10:00 11:43 12:17 Temperature 98.4 F Pulse Rate 95 H Respiratory 20 20 18 Rate Blood Pressure 122/66 O2 Sat by Pulse 96 Oximetry General appearance: Present: no acute distress, well-nourished - EENT Eyes: PERRL, EOM intact ENT: hearing intact, clear oral mucosa Ears: bilateral: normal - Neck Neck: supple, normal ROM - Respiratory Respiratory effort: normal Respiratory: bilateral: CTA - Breasts Breasts: normal - Cardiovascular Heart rate: 78 Rhythm: regular Heart Sounds: Present: S1 & S2. Absent: gallop, rub Extremities: pulses intact, No edema, normal color, Full ROM, abnormal - Gastrointestinal General gastrointestinal: Present: soft, non-tender, non-distended, normal bowel sounds - Genitourinary Male genitourinary: normal - Integumentary Integumentary: clear, warm, dry - Musculoskeletal Musculoskeletal: 1, strength equal bilaterally - Neurologic Neurologic: moves all extremities - Psychiatric Psychiatric: memory intact, appropriate mood/affect, intact judgment & insight - Labs CBC & Chem 7: 10/15/20 03:28 10/14/20 15:33 Labs: Abnormal lab results 10/14/20 10/14/20 10/14/20 Range/Units 15:33 15:33 23:22 MCHC 35 H (32-34) % RDW 15.3 H (13.2-15.2) % Lymph % (Auto) (13.4-35.0) % [place] % (Auto) (0.0-7.3) % Eos % (Auto) (0.0-4.3) % Creatinine 0.6 L (0.8-1.3) mg/dL POC Glucose 107 H (70-105) mg/dL Alkaline Phosphatase 151 H (35-129) units/L 10/15/20 Range/Units 03:28 MCHC 35 H (32-34) % RDW (13.2-15.2) % Lymph % (Auto) 41.1 H (13.4-35.0) % [place] % (Auto) 8.4 H (0.0-7.3) % Eos % (Auto) 5.5 H (0.0-4.3) % Creatinine (0.8-1.3) mg/dL POC Glucose (70-105) mg/dL Alkaline Phosphatase (35-129) units/L
[2020-10-15] MEDS ORDERED: HYDROmorphone 1 MG/1 ML INJ IM PRN (15:52)
[2020-10-15] MEDS: HYDROmorphone 1 MG/1 ML INJ IV PRN (21:10)
[2020-10-15] MEDS: traZODone 100 MG TAB PO SCH (22:17)
[2020-10-16] MEDS: HYDROmorphone 1 MG/1 ML INJ IV PRN ×4 (01:18→15:48)
[2020-10-16] MEDS: VANCOMYCIN 1,500 MG in SODIUM CHLORIDE 0.9% 500 ML 500 ML IV SCH ×2 (01:19→09:37)
[2020-10-16] MEDS: oxyCODONE /ACETAMINOPHEN 5-325MG TAB PO PRN ×2 (07:18→13:13)
[2020-10-16 08:04] LABS: BUN/Creatinine Ratio 22; Blood Urea Nitrogen 13 mg/dL (9-20); Hemolysis Index 0
[2020-10-16] MEDS: NICOTINE 21 MG/24 HR PATCH TD SCH (09:37)
[2020-10-16] MEDS: DOCUSATE SODIUM 100 MG/10 ML ORAL LIQD PO SCH (09:37)
[2020-10-16] MEDS: predniSONE 20 MG TAB PO SCH (09:38)
[2020-10-16] MEDS: LISINOPRIL 20 MG TAB PO SCH (09:38)
[2020-10-16] MEDS: amLODIPine 10 MG TAB PO SCH (09:38)
[2020-10-16] MEDS: PANTOPRAZOLE 40 MG TAB PO SCH (09:38)
--- NOTE | 2020-10-16 14:54 | Progress Note ---
Assessment and Plan Cultures: 10/11/2020 blood culture: No growth 10/12/2020 right hand surgical culture: Staph aureus A/P: 60-year-old male with hypertension, smoking history admitted with: #Sepsis secondary to right hand abscess and cellulitis: Status post I&D in OR. Culture growing Staph aureus. #Tobacco abuse: Smoking cessation was advised. Recs: -Cultures still not finalized as MSSA v/s MRSA -Continue IV vancomycin, monitor trough and creatinine -Referral for IV Dalvance sent to [facility], d/w case management and patient -Continue wound care -Patient can be discharged as soon as Dalvance approval is obtained Camila Herrera MD, FACP [facility] ([facility]) O: [phone] F: [phone] Subjective Date of service: 10/16/20 Principal diagnosis: Hand abscess Interval history: No fever. Complains of chronic back pain. Right hand pain is stable. Objective - Exam Narrative Exam: Physical Exam: Constitutional: Alert, cooperative. No acute distress Head, Ears, Nose: Normocephalic, atraumatic. External ears, nose normal Eyes: Conjunctivae/corneas clear. No icterus. No ptosis. Neck: Supple, no meningeal signs Cardiovascular: S1, S2 normal. Respiratory: Good air entry, clear to auscultation bilaterally GI: Soft, non-tender; bowel sounds normal. No peritoneal signs Musculoskeletal: Right hand in dressing Skin: No rash or abscess Hem/Lymphatic: No palpable cervical or supraclavicular nodes. No lymphangitis Psych: Mood ok. Affect normal Neurological: Awake, alert, oriented. No gross abnormality - Constitutional Vitals: Vital Signs Temp Pulse Resp BP Pulse Ox 98.6 F 87 18 146/74 96 10/16/20 12:01 10/16/20 12:01 10/16/20 12:01 10/16/20 12:01 10/16/20 12:01 Temperature -Last 24 Hours Temperature 98.6 F Temperature 98.2 F Temperature 98.8 F Temperature 98.6 F Temperature 98.9 F Temperature 98.1 F - Labs CBC & Chem 7: 10/15/20 03:28 10/16/20 07:38 Labs: Abnormal lab results 10/16/20 Range/Units 07:38 Carbon Dioxide 31 H (22-30) mmol/L Creatinine 0.6 L (0.8-1.3) mg/dL Glucose 103 H (75-100) mg/dL
--- NOTE | 2020-10-16 14:59 | Progress Note ---
Assessment and Plan Assessment and Plan --Sepssis IV antibiotics in the form of vancomycin --Cellulitis of right upper limb Current Visit: Yes Status: Acute Plan to address problem: IV antibiotic therapy, supportive care, infectious disease service reconsulted for antibiotic recommendations, supportive care. Continue IV vancomycin, monitor trough and creatinine Follow-up final cultures. Referral for IV Dalvance sent to [facility] by Dr. Herrera continue wound care Needs tetanus prophylaxis -Cultures still not finalized as MSSA v/s MRSA -Referral for IV Dalvance sent to [facility], d/w case management and patient -Continue wound care -Patient can be discharged as soon as Dalvance approval is obtained --Nicotine dependence Current Visit: Yes Status: Acute Qualifiers: Nicotine product type: cigarettes Substance use status: in withdrawal Qualified Code(s): F17.213 - Nicotine dependence, cigarettes, with withdrawal Plan to address problem: Smoking cessation counseling, supportive care, behavior change counseling, +15 minutes. Nicoderm patch for now --Hypertension Current Visit: Yes Status: Acute Qualifiers: Hypertension type: essential hypertension Qualified Code(s): I10 - Essential (primary) hypertension Plan to address problem: Monitor blood pressure every shift, continue medical management. --Obesity hypoventilation syndrome Current Visit: Yes Status: Acute Plan to address problem: Balanced diet, increase physical activity discharge, outpatient pulmonary follow-up for sleep study. --GERD (gastroesophageal reflux disease) Current Visit: Yes Status: Acute Qualifiers: Esophagitis presence: without esophagitis Qualified Code(s): K21.9 - Gastro-esophageal reflux disease without esophagitis Plan to address problem: PPI therapy, supportive care. --DVT prophylaxis Current Visit: No Status: Acute Plan to address problem: SCD to bilateral lower extremities while in bed, patient is ambulatory. Subjective Date of service: 10/16/20 Principal diagnosis: Hand abscess Interval history: 60 YO Male with HTN, COPD, Obesity, Right Hand necrotizing soft tissue infection, GERD, Nicotine Dependence, CHF presents to ED for evaluation. Patient reports "my head is still infected". Patient states that he signed out AGAINST MEDICAL ADVICE yesterday but has returned to hospital for completion of care. Patient transported to [facility] via private vehicle for further care and e valuation. Patient seen and evaluated in the emergency department. All lab and imaging studies reviewed. Patient found to have right hand cellulitis secondary to resolved necrotizing soft tissue infection. Patient placed in observation status and admitted to medical floor. Patient treated with IV antibiotic therapy. Patient denies fever, chills, chest pain, palpitation, productive cough, skin rash, recent ill contacts, hand trauma, or known exposure to COVID- 19. Patient did not disclose why he left hospital prior to completion of treatment plan. 10/15/2020 Right hand wound doing well Patient waiting for outpatient IV antibiotics Objective - Constitutional Vitals: Vital Signs - 12hr 10/16/20 10/16/20 10/16/20 04:20 05:32 06:02 Temperature 98.8 F Pulse Rate 80 Respiratory 20 17 17 Rate Respiratory Rate [Right Hand] Blood Pressure 136/68 O2 Sat by Pulse 94 Oximetry 10/16/20 10/16/20 10/16/20 08:08 08:18 10:00 Temperature 98.2 F Pulse Rate 80 Respiratory 16 16 Rate Respiratory 17 Rate [Right Hand] Blood Pressure 135/68 O2 Sat by Pulse 94 Oximetry 10/16/20 12:01 Temperature 98.6 F Pulse Rate 87 Respiratory 18 Rate Respiratory Rate [Right Hand] Blood Pressure 146/74 O2 Sat by Pulse 96 Oximetry General appearance: Present: no acute distress, well-nourished - EENT Eyes: PERRL, EOM intact ENT: hearing intact, clear oral mucosa Ears: bilateral: normal - Neck Neck: supple, normal ROM - Respiratory Respiratory effort: normal Respiratory: bilateral: CTA - Breasts Breasts: normal - Cardiovascular Rhythm: regular Heart Sounds: Present: S1 & S2. Absent: gallop, rub Extremities: pulses intact, No edema, normal color, Full ROM Extremity abnormal: other (Right hand abscess status post I&D) - Gastrointestinal General gastrointestinal: Present: soft, non-tender, non-distended, normal bowel sounds - Genitourinary Male genitourinary: normal - Integumentary Integumentary: clear, warm, dry - Musculoskeletal Musculoskeletal: 1, strength equal bilaterally - Neurologic Neurologic: moves all extremities - Psychiatric Psychiatric: memory intact, appropriate mood/affect, intact judgment & insight - Labs CBC & Chem 7: 10/15/20 03:28 10/16/20 07:38 Labs: Abnormal lab results 10/16/20 Range/Units 07:38 Carbon Dioxide 31 H (22-30) mmol/L Creatinine 0.6 L (0.8-1.3) mg/dL Glucose 103 H (75-100) mg/dL
[2020-10-16] MEDS: DULoxetine 30 MG CAP PO SCH (15:32)
[2020-10-16] MEDS ORDERED: KETOROLAC 30 MG/1 ML INJ IV PRN (16:33)
[2020-10-16 16:59] VITALS: BP 151/80
--- NOTE | 2020-10-16 17:57 | Discharge Summary ---
Providers - Providers Date of Admission: 10/14/20 18:54 Date of discharge: 10/16/20 Attending physician: NEVILLE HANKINS 10/14/20 18:12 Consult to Physician [CONS] Routine Comment: Consulting Provider: SHREE HERRERA Physician Instructions: Reason For Exam: hand cellulitis 10/16/20 14:09 Consult to Case Management [CONS] Routine Services Needed at Discharge: Other Comment:: IV Dalvance at [facility] Additional Physician Instructions: [facility] ([facility]) O: [phone] F: [phone] OUTPATIENT PARENTERAL ANTIBIOTIC THERAPY (OPAT) ORDERS Diagnoses: Right hand cellulitis, right hand abscess Antimicrobial administration: -IV dalbavancin 1000 mg dose followed by 500 mg one week later (total 2 doses one week apart) - via peripheral IV Lab monitoring: - CBC with differential, Creatinine, ALT, AST, CRP once a week every Friday while on IV antibiotics. Please fax results to [phone] and call [phone] for critical lab results. Shree Herrera MD [facility] Primary care physician: TOW CAR DRIVER Hospitalization Condition: Stable Hospital course: Subjective Date of service: 10/16/20 Principal diagnosis: Hand abscess Interval history: 60 YO Male with HTN, COPD, Obesity, Right Hand necrotizing soft tissue infe ction, GERD, Nicotine Dependence, CHF presents to ED for evaluation. Patient reports "my head is still infected". Patient states that he signed out AGAINST MEDICAL ADVICE yesterday but has returned to hospital for completion of care. Patient transported to [facility] via private vehicle for further care and evaluation. Patient seen and evaluated in the emergency department. All lab and imaging studies reviewed. Patient found to have right hand cellulitis secondary to resolved necrotizing soft tissue infection. Patient placed in observation status and admitted to medical floor. Patient treated with IV antibiotic therapy. Patient denies fever, chills, chest pain, palpitation, productive cough, skin rash, recent ill contacts, hand trauma, or known exposure to COVID- 19. Patient did not disclose why he left hospital prior to completion of treatment plan. 10/15/2020 Right hand wound doing well Patient waiting for outpatient IV antibiotics Discharged with infusion cewnt IV Dalvance Assessment and Plan --Sepssis IV antibiotics at infusion center --Cellulitis of right upper limb Current Visit: Yes Status: Acute Plan to address problem: IV Dalvance as outpatient at [facility] infusion center -Cultures still not finalized as MSSA v/s MRSA -Referral for IV Dalvance sent to [facility], d/w case management and patient -Continue wound care -Patient can be discharged as soon as Dalvance approval is obtained --Nicotine dependence Current Visit: Yes Status: Acute Qualifiers: Nicotine product type: cigarettes Substance use status: in withdrawal Qualified Code(s): F17.213 - Nicotine dependence, cigarettes, with withdrawal Plan to address problem: Smoking cessation counseling, supportive care, behavior change counseling, +15 minutes. Nicoderm patch for now --Hypertension Current Visit: Yes Status: Acute Qualifiers: Hypertension type: essential hypertension Qualified Code(s): I10 - Essential (primary) hypertension Plan to address problem: Monitor blood pressure every shift, continue medical management. --Obesity hypoventilation syndrome Current Visit: Yes Status: Acute Plan to address problem: Balanced diet, increase physical activity discharge, outpatient pulmonary follow-up for sleep study. --GERD (gastroesophageal reflux disease) Current Visit: Yes Status: Acute Qualifiers: Esophagitis presence: without esophagitis Qualified Code(s): K21.9 - Gastro-esophageal reflux disease without esophagitis Plan to address problem: PPI therapy, supportive care. --DVT prophylaxis Current Visit: No Status: Acute Plan to address problem: SCD to bilateral lower extremities while in bed, patient is ambulatory. Disposition: DC- TO HOME OR SELFCARE Core Measure Documentation - Palliative Care Palliative Care/ Comfort Measures: Not Applicable - Core Measures Any of the following diagnoses?: none Exam - Constitutional Vitals: Temp Pulse Resp BP Pulse Ox 98.3 F 91 H 18 151/80 95 10/16/20 16:01 10/16/20 16:01 10/16/20 16:01 10/16/20 16:01 10/16/20 16:01 General appearance: Present: no acute distress, well-nourished - EENT Eyes: Present: PERRL ENT: hearing intact, clear oral mucosa - Neck Neck: Present: supple, normal ROM - Respiratory Respiratory effort: normal Respiratory: bilateral: CTA - Cardiovascular Heart rate: 78 Rhythm: regular Heart Sounds: Present: S1 & S2. Absent: rub, click - Extremities Extremities: pulses symmetrical, No edema Peripheral Pulses: within normal limits - Abdominal General gastrointestinal: Present: soft, non-tender, non-distended, normal bowel sounds Male genitourinary: Present: normal - Integumentary Integumentary: Present: clear, warm, dry - Musculoskeletal Musculoskeletal: gait normal, strength equal bilaterally - Psychiatric Psychiatric: appropriate mood/affect, intact judgment & insight - Neurologic Neurologic: CNII-XII intact, moves all extremities - Allied Health Allied health notes reviewed: nursing, case management Plan Follow up with: PRIMARY CARE, [Primary Care Provider] - 3-5 Days
[2020-10-16] MEDS ORDERED: VANCOMYCIN 1,500 MG in SODIUM CHLORIDE 0.9% 500 ML 500 ML IV SCH (22:00)
== END 2020-10-16 18:30 | disposition home or self-care (01) ==
LOC: ED 13:47 → 3B 18:54 → INTOOBSV 18:54
PROVIDERS: ADMIT Internal Medicine; ATTEND Internal Medicine
DX: A41.9 Sepsis, unspecified organism (principal); L03.113 Cellulitis of right upper limb; I10 Essential (primary) hypertension; E66.2 Morbid (severe) obesity with alveolar hypoventilation; K21.9 Gastro-esophageal reflux disease without esophagitis; J44.9 Chronic obstructive pulmonary disease, unspecified; Z68.32 Body mass index [BMI] 32.0-32.9, adult; F17.213 Nicotine dependence, cigarettes, with withdrawal; Z90.49 Acquired absence of other specified parts of digestive tract; Z98.890 Other specified postprocedural states
CPT/HCPCS: 36415; 80048; 80053; 80202; 82962; 85025; 96365; 96366; 96372; 96375; 96376; 99284; G0378; J1170; J3370; J7040; J7512

== ENCOUNTER 2022-01-17 23:04 | Emergency (ER) | payer MEDICARE ==
--- NOTE | 2022-01-18 01:18 | Emergency Department Report ---
<DONI CANTU - Last Filed: 01/18/22 05:57> ED Psych HPI - General Chief Complaint: Psych Stated Complaint: ALCOHOL/MENTAL DEPRESSION Time Seen by Provider: 01/18/22 01:12 Source: patient Mode of arrival: Ambulatory - History of Present Illness Initial Comments: Patient is 61 years old male with history of congestive heart failure COPD hypertension and arthritis. Patient presented to the ER initially complaining of chest pain and then he came to suicidal ideation. He stated that he is having a lot of chronic pain that he cannot live with it anymore. Patient his plan is to run into traffic. Patient admitted that he has been drinking alco hol. Patient looks intoxicated. Patient denies any homicidal ideation. No visual or auditory hallucination. Patient stated that he think that his chest pain is due to an anxiety. MD Complaint: suicidal ideation Associated Psychiatric Symptoms: depression, suicidal ideation Context: recent alcohol abuse Associated Symptoms: denies other symptoms - Related Data Home Medications Medication Instructions Recorded Confirmed Last Taken Cyanocobalamin (Vitamin B-12) 2,500 mcg PO 10/13/20 Unknown [Vitamin B12] Docusate Sodium [Stool Softener] 50 mg PO QDAY 10/13/20 10/13/20 Unknown Omeprazole 40 mg PO BID 10/13/20 10/13/20 Unknown Trazodone HCl [traZODone] 450 mg PO QHS 10/13/20 10/13/20 Unknown cephALEXin [Keflex] 500 mg PO Q8HR 10/13/20 10/13/20 Unknown Previous Rx's Medication Instructions Recorded Last Taken Type Amoxicillin/Potassium Clav 1 each PO BID 10 Days #20 tablet 08/11/20 Unknown Rx [Augmentin 875-125 Tablet] predniSONE [Deltasone] 40 mg PO DAILY 5 Days #10 tablet 08/11/20 Unknown Rx Buprenorphine HCl/Naloxone HCl 1 film PO BID #10 film 10/16/20 Unknown Rx [Buprenorphine-Nalox 8-2Mg Film] DULoxetine [Cymbalta] 60 mg PO QDAY #30 cap 10/16/20 Unknown Rx Ibuprofen [Motrin 800 MG tab] 800 mg PO Q8HR PRN #30 tablet 10/16/20 Unknown Rx Lisinopril [Zestril TAB] 20 mg PO QDAY #90 10/16/20 Unknown Rx Oxycodone HCl/Acetaminophen 1 each PO Q8H PRN 6 Days #18 tablet 10/16/20 Unknown Rx [Percocet 10/325 mg] amLODIPine 10 mg PO DAILY #30 tablet 10/16/20 Unknown Rx DULoxetine [Cymbalta] 60 mg PO QDAY 30 Days #30 capsule 01/19/22 Unknown Rx Allergies Allergy/AdvReac Type Severity Reaction Status Date / Time morphine AdvReac Diarrhea Verified 10/14/20 18:21 ED Review of Systems Comment: All other systems reviewed and negative Constitutional: denies: chills, fever Respiratory: denies: cough, shortness of breath, SOB with exertion Cardiovascular: chest pain. denies: palpitations, dyspnea on exertion Gastrointestinal: denies: abdominal pain, nausea, vomiting Musculoskeletal: back pain Neurological: denies: headache, weakness, numbness, paresthesias, confusion Psychiatric: depression, suicidal thoughts. denies: auditory hallucinations, visual hallucinations, homicidal thoughts ED Past Medical Hx - Past Medical History Hx Hypertension: Yes Hx Heart Attack/AMI: No Hx Congestive Heart Failure: Yes Hx Diabetes: No Hx Liver Disease: Yes (report recent diagnosis of "liver infection." Details unknown.) Hx Renal Disease: No Hx Asthma: Yes Hx COPD: Yes - Surgical History Hx Cholecystectomy: Yes - Social History Smoking Status: Current Every Day Smoker Substance Use Type: None - Medications Home Medications: Home Medications Medication Instructions Recorded Confirmed Last Taken Type Amoxicillin/Potassium Clav 1 each PO BID 10 Days #20 tablet 08/11/20 Unknown Rx [Augmentin 875-125 Tablet] predniSONE [Deltasone] 40 mg PO DAILY 5 Days #10 tablet 08/11/20 Unknown Rx Cyanocobalamin (Vitamin B-12) 2,500 mcg PO 10/13/20 Unknown History [Vitamin B12] Docusate Sodium [Stool Softener] 50 mg PO QDAY 10/13/20 10/13/20 Unknown History Omeprazole 40 mg PO BID 10/13/20 10/13/20 Unknown History Trazodone HCl [traZODone] 450 mg PO QHS 10/13/20 10/13/20 Unknown History cephALEXin [Keflex] 500 mg PO Q8HR 10/13/20 10/13/20 Unknown History Buprenorphine HCl/Naloxone HCl 1 film PO BID #10 film 10/16/20 Unknown Rx [Buprenorphine-Nalox 8-2Mg Film] DULoxetine [Cymbalta] 60 mg PO QDAY #30 cap 10/16/20 Unknown Rx Ibuprofen [Motrin 800 MG tab] 800 mg PO Q8HR PRN #30 tablet 10/16/20 Unknown Rx Lisinopril [Zestril TAB] 20 mg PO QDAY #90 10/16/20 Unknown Rx Oxycodone HCl/Acetaminophen 1 each PO Q8H PRN 6 Days #18 tablet 10/16/20 Unknown Rx [Percocet 10/325 mg] amLODIPine 10 mg PO DAILY #30 tablet 10/16/20 Unknown Rx DULoxetine [Cymbalta] 60 mg PO QDAY 30 Days #30 capsule 01/19/22 Unknown Rx ED Physical Exam - General Limitations: No Limitations General appearance: alert, in no apparent distress, appears intoxicated - Head Head exam: Present: atraumatic, normocephalic, normal inspection - Eye Eye exam: Present: normal appearance - ENT ENT exam: Present: normal exam, normal orophraynx, mucous membranes moist - Neck Neck exam: Present: normal inspection, full ROM. Absent: tenderness, meningismus - Respiratory Respiratory exam: Present: normal lung sounds bilaterally - Cardiovascular Cardiovascular Exam: Present: regular rate, normal rhythm, normal heart sounds - GI/Abdominal GI/Abdominal exam: Present: soft, normal bowel sounds. Absent: distended, tenderness, guarding, rebound, rigid, organomegaly, mass, bruit, pulsatile mass, hernia - Extremities Exam Extremities exam: Present: normal inspection - Back Exam Back exam: Present: normal inspection - Neurological Exam Neurological exam: Present: alert, oriented X3, CN II-XII intact. Absent: motor sensory deficit - Psychiatric Psychiatric exam: Present: anxious, suicidal ideation. Absent: homicidal ideation - Skin Skin exam: Present: warm, intact, normal color ED Medical Decision Making - Lab Data Result diagrams: 01/18/22 01:23 01/18/22 01:23 - EKG Data -: EKG Interpreted by Me EKG shows normal: sinus rhythm Rate: normal - EKG Data Interpretation: no acute changes - Radiology Data Radiology results: report reviewed - Medical Decision Making Patient is 61 years old male with history of congestive heart failure COPD hypertension and arthritis. Patient presented to the ER initially complaining of chest pain and then he came to suicidal ideation. He stated that he is having a lot of chronic pain that he cannot live with it anymore. Patient his p stephon is to run into traffic. Patient admitted that he has been drinking alcohol. Patient looks intoxicated. Patient denies any homicidal ideation. No visual or auditory hallucination. Patient stated that he think that his chest pain is due to an anxiety. EKG is unremarkable. Labs reviewed and unremarkable except for alcohol level of 112. Troponin is negative. Chest x-ray is unremarkable. Patient is medically cleared to be evaluated by psychiatric team. ED Disposition Clinical Impression: Non-cardiac chest pain, No abnormality detected on mental health assessment Disposition: HOME / SELF CARE / HOMELESS Is pt being admited?: No Condition: Stable Instructions: Nonspecific Chest Pain, Adult Additional Instructions: OUTPATIENT MENTAL HEALTH RESOURCES [facility], [facility] Dk Day MD: [address] [place] [address] [place] [address] [facility]: [facility] [address] [place] [address] [place] [address] [phone] [facility]: [facility] Healthcare: [address] [facility] [place] [address] [facility] [id number] [facility]: Bryan Trujillo MD: [address] [facility] [id number] [facility]: [address] [place], [place] [id number] [phone] [place] CRISIS AND ACCESS LINE: In case of an emergency, please contact the following numbers: [place] Crisis and Access Line: Number: Crisis Text Line: (Text START) Number: 433149 Suicide Prevention Line: Number: Emergency Number: 911 SUBSTANCE ABUSE PROGRAMS: [facility]: Location: [place], [place] [facility] Address: [address] [place] [address] [facility] Recovery: Address: [address], [place] [address] [facility]: Address: [address] [place] [address] [facility]: Address: [address] [place] [address] [facility] Address: [address] [place] [address]. Please contact above numbers to attempt placement into free based program. Medicaid Programs: [facility]: Address: [address] [place] [address] [facility]: Address: [address] [place] [address] Prescriptions: DULoxetine [Cymbalta] 60 mg PO QDAY 30 Days #30 capsule <ILIANA HILL - Last Filed: 01/19/22 15:21> ED Review of Systems ROS: Stated complaint: ALCOHOL/MENTAL DEPRESSION Other details as noted in HPI ED Course Vital Signs 01/17/22 01/18/22 01/18/22 23:54 04:46 04:57 Temperature 98.9 F 98.1 F Pulse Rate 101 H 79 Respiratory 16 18 16 Rate Blood Pressure Blood Pressure 113/61 142/78 [Left] O2 Sat by Pulse 99 99 99 Oximetry 01/18/22 01/18/22 01/19/22 13:56 20:02 10:29 Temperature 98.5 F 98.7 F Pulse Rate 82 90 112 H Respiratory 17 18 Rate Blood Pressure 151/89 Blood Pressure 149/83 [Left] O2 Sat by Pulse 99 97 Oximetry ED Medical Decision Making - Lab Data Result diagrams: 01/18/22 01:23 01/18/22 01:23 Critical care attestation.: If time is entered above; I have spent that time in minutes in the direct care of this critically ill patient, excluding procedure time. ED Disposition Time of Disposition: 15:21
[2022-01-18 01:42] LABS: Basophils % (Auto) 0.5 % (0.0-1.8); Eosinophils # (Auto) 0.2 K/mm3 (0.0-0.4); Eosinophils % (Auto) 3.9 % (0.0-4.3); Hematocrit 38.1 % (35.5-45.6); Hemoglobin 12.7 gm/dl (11.8-15.2); Lymphocytes # (Auto) 2.1 K/mm3 (1.2-5.4); Lymphocytes % (Auto) 37.9 % (13.4-35.0); Mean Corpuscular HGB Conc 34 % (32-34); Mean Corpuscular Volume 90 fl (84-94); Monocytes # (Auto) 0.5 K/mm3 (0.0-0.8); Monocytes % (Auto) 8.6 % (0.0-7.3); Platelet Count 221 K/mm3 (140-440); Red Blood Count 4.24 M/mm3 (3.65-5.03); Red Cell Distribution Width 15.1 % (13.2-15.2)
[2022-01-18 02:02] LABS: BUN/Creatinine Ratio 22; Blood Urea Nitrogen 22 mg/dL (9-20); Calcium 8.7 mg/dL (8.4-10.2); Hemolysis Index 13
[2022-01-18 03:27] LABS: Bilirubin,Urine NEG (Negative); Blood,Urine NEG (Negative); Color,Urine Straw (Yellow); Protein,Urine <15 mg/dL mg/dL (Negative); Urobilinogen,Urine < 2.0 mg/dL (<2.0)
[2022-01-18 03:35] LABS: Amphetamine Screen,Urine PRESUMPTIVE NEGATIVE; Benzodiazepines Screen,Urine PRESUMPTIVE NEGATIVE; Cannabinoid Screen,Urine PRESUMPTIVE NEGATIVE; Cocaine Screen,Urine PRESUMPTIVE NEGATIVE; Methadone Screen,Urine PRESUMPTIVE NEGATIVE; Opiate Screen,Urine PRESUMPTIVE NEGATIVE
--- NOTE | 2022-01-18 11:56 | Consultation ---
History of Present Illness - Reason for Consult Consult date: 01/18/22 Reason for consult: suicidal - History of Present Psychiatric Illness The patient is a 61 year old male with history of Bipolar who presents to the ED with suicidal ideation. In my encounter with the patient, he is calm, alert and oriented x3. The patient that he has been consuming a fifth of Vodka x3 days " I need help, I have chronic pain issue and waiting for surgery." The patient states he will jump in front of a car if he gets discharged. No withdrawal symptoms noted. PAST PSYCHIATRIC HISTORY Diagnoses: Bipolar, PTSD Suicide attempts or Self-harm behavior: Yes Prior psychiatric hospitalizations: Yes Substance Abuse history: Alcohol Previous psychiatric medications tried: Cymbalta Outpatient treatment: Unknown PAST MEDICAL HISTORY: None reported Family Psychiatric History: None reported or documented SOCIAL HISTORY Marital Status: Single Living Arrangements: Lives with a friend Employment Status:Unemployed Access to guns/weapons: Denies Education: Unknown History of Abuse: Denies Legal History: unknown REVIEW OF SYSTEMS Constitutional: Negative for weight loss ENT: Negative for stridor Respiratory: Negative for cough or hemoptysis All other systems reviewed and are negative MENTAL STATUS EXAMINATION General Appearance and Behavior: Age appropriate, good hygiene, wearing appropriate clothes, good eye contact, anxious, cooperative Cooperation: Participating/engaged Psychomotor Behavior: Psychomotor normal Mood:Depressed Affect and affective range: congruent with stated mood Thought Process: Goal directed Thought Content: Suicidal Speech: Normal tone and pace Suicidal Ideation:Yes Homicidal Ideation: Denies Hallucinations: Auditory Delusions: None Impulse Control: Limited Insight and Judgment: Limited insight and judgment Memory: Limited Attention: attentive Orientation: Alert, oriented Diagnoses: (1)Bipolar disorder (2) Alcohol use disorder Treatment Plan 1013 Continue home meds Start [place] protocol Cymbalta 60mg po Daily PSYCHOTHERAPY: Supportive psychotherapy provided MEDICAL: Per primary team DELIRIUM PRECAUTIONS: Please re-orient patient frequently, keep lights on during the day, and minimize benzodiazepines and opiates as these medications could worsen patient's confusion. 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 Will follow. Thank you for the consult. Case staffed with Dr. Gatica Medications and Allergies Medications and Allergies Allergies Allergy/AdvReac Type Severity Reaction Status Date / Time morphine AdvReac Diarrhea Verified 10/14/20 18:21 Home Medications Medication Instructions Recorded Confirmed Last Taken Type Amoxicillin/Potassium Clav 1 each PO BID 10 Days #20 tablet 08/11/20 Unknown Rx [Augmentin 875-125 Tablet] predniSONE [Deltasone] 40 mg PO DAILY 5 Days #10 tablet 08/11/20 Unknown Rx Cyanocobalamin (Vitamin B-12) 2,500 mcg PO 10/13/20 Unknown History [Vitamin B12] Docusate Sodium [Stool Softener] 50 mg PO QDAY 10/13/20 10/13/20 Unknown History Omeprazole 40 mg PO BID 10/13/20 10/13/20 Unknown History Trazodone HCl [traZODone] 450 mg PO QHS 10/13/20 10/13/20 Unknown History cephALEXin [Keflex] 500 mg PO Q8HR 10/13/20 10/13/20 Unknown History Buprenorphine HCl/Naloxone HCl 1 film PO BID #10 film 10/16/20 Unknown Rx [Buprenorphine-Nalox 8-2Mg Film] DULoxetine [Cymbalta] 60 mg PO QDAY #30 cap 10/16/20 Unknown Rx Ibuprofen [Motrin 800 MG tab] 800 mg PO Q8HR PRN #30 tablet 10/16/20 Unknown Rx Lisinopril [Zestril TAB] 20 mg PO QDAY #90 10/16/20 Unknown Rx Oxycodone HCl/Acetaminophen 1 each PO Q8H PRN 6 Days #18 tablet 10/16/20 Unknown Rx [Percocet 10/325 mg] amLODIPine 10 mg PO DAILY #30 tablet 10/16/20 Unknown Rx Mental Status Exam - Vital signs Last Vital Signs Temp 98.1 F 01/18/22 04:46 Pulse 79 01/18/22 04:46 Resp 16 01/18/22 04:57 BP 142/78 01/18/22 04:46 Pulse Ox 99 01/18/22 04:57 Results Result Diagrams: 01/18/22 01:23 01/18/22 01:23 Abnormal lab results 01/18/22 01/18/22 01/18/22 Range/Units 01:23 01:23 01:23 Lymph % (Auto) 37.9 H (13.4-35.0) % [place] % (Auto) 8.6 H (0.0-7.3) % BUN 22 H (9-20) mg/dL Glucose 136 H (75-100) mg/dL Salicylates < 0.3 L (2.8-20.0) mg/dL Acetaminophen (10.0-30.0) ug/mL Plasma/Serum Alcohol (0-0.07) % 01/18/22 01/18/22 Range/Units 01:23 01:23 Lymph % (Auto) (13.4-35.0) % [place] % (Auto) (0.0-7.3) % BUN (9-20) mg/dL Glucose (75-100) mg/dL Salicylates (2.8-20.0) mg/dL Acetaminophen 5.0 L (10.0-30.0) ug/mL Plasma/Serum Alcohol 0.12 H (0-0.07) % All other labs normal.
[2022-01-18] MEDS ORDERED: IBUPROFEN 800 MG TAB PO PRN (12:03)
[2022-01-18] MEDS ORDERED: DULoxetine 30 MG CAP PO SCH (13:00)
[2022-01-18] MEDS: DULoxetine 30 MG CAP PO SCH (13:54)
[2022-01-18] MEDS: amLODIPine 10 MG TAB PO SCH (13:55)
[2022-01-18] MEDS ORDERED: LORazepam 2 MG TAB PO PRN (14:46)
--- NOTE | 2022-01-18 14:48 | Emergency Department Report ---
Blank Doc - Documentation Documentation: 61-year-old male with suicidal ideation, depression, chronic pain, alcohol abuse currently on 1013. CIWA Ativan orders placed. Awaiting placement
--- NOTE | 2022-01-18 19:14 | XRay Report ---
CHEST 1 VIEW INDICATION / CLINICAL INFORMATION: Medical Clearance Psych. COMPARISON: None available. FINDINGS: SUPPORT DEVICES: None. HEART / MEDIASTINUM: No significant abnormality. LUNGS / PLEURA: No significant pulmonary or pleural abnormality. No pneumothorax. ADDITIONAL FINDINGS: No significant additional findings. IMPRESSION: 1. No acute findings. Signer Name: Rj Ayala MD Signed: 01/18/2022 7:10 PM Workstation Name: [id number]
[2022-01-18] MEDS: NICOTINE 14 MG/24 HR PATCH TD SCH (21:07)
[2022-01-18] MEDS: LORazepam 2 MG TAB PO PRN (21:07)
[2022-01-19] MEDS ORDERED: DULoxetine 30 MG CAP PO SCH (10:00)
[2022-01-19] MEDS: NICOTINE 14 MG/24 HR PATCH TD SCH (10:29)
[2022-01-19] MEDS: DULoxetine 30 MG CAP PO SCH (10:29)
[2022-01-19] MEDS: LORazepam 2 MG TAB PO PRN (10:29)
[2022-01-19] MEDS: amLODIPine 10 MG TAB PO SCH (10:29)
--- NOTE | 2022-01-19 11:07 | Progress Note ---
Subjective - Reason for Consult Consult date: 01/19/22 Reason for consult: mental health evaluation - Chief Complaint Chief complaint: The patient was seen this morning. He is calm. The patient reports sleep and appetite as good. He denies any current suicidal/homicidal ideation and denies hallucinations. T REVIEW OF SYSTEMS Constitutional: Negative for weight loss ENT: Negative for stridor Respiratory: Negative for cough or hemoptysis All other systems reviewed and are negative MENTAL STATUS EXAMINATION General Appearance and Behavior: Age appropriate, good hygiene, wearing appropriate clothes, good eye contact, anxious, cooperative Cooperation: Participating/engaged Psychomotor Behavior: Psychomotor normal Mood:Ok Affect and affective range: congruent with stated mood Thought Process: Goal directed Thought Content: Reality oriented Speech: Normal tone and pace Suicidal Ideation:Denies Homicidal Ideation: Denies Hallucinations: Denies Delusions: None Impulse Control: Limited Insight and Judgment: Limited insight and judgment Memory: Limited Attention: attentive Orientation: Alert, oriented Diagnoses: (1)Bipolar disorder (2) Alcohol use disorder Treatment Plan Dc 1013 Continue home meds Cymbalta 60mg po Daily PSYCHOTHERAPY: Supportive psychotherapy provided MEDICAL: Per primary team DELIRIUM PRECAUTIONS: Please re-orient patient frequently, keep lights on during the day, and minimize benzodiazepines and opiates as these medications could worsen patient's confusion. 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 Shuttle [facility] will provide patient with psych outpatient resources. Will sign off. Thank you for the consult. Case staffed with Dr. Gatica Medications and Allergies Mental Status Exam - Vital signs Last Vital Signs Temp 98.7 F 01/18/22 20:02 Pulse 112 H 01/19/22 10:29 Resp 18 01/18/22 20:02 BP 149/83 01/18/22 20:02 Pulse Ox 97 01/18/22 20:02
[2022-01-19 17:50] VITALS: BP 155/79
--- NOTE | 2022-01-22 18:25 | Electrocardiograph Report ---
[facility] Test Date: 2022-01-17 Test Time: 23:44:36 Pat Name: STEPHANIE PRICE Department: Room: Gender: M Dynamo Tender: ARTURO : 1960 Requested By: DONI CANTU Order Number: [id number] Reading MD: Rick Figueroa Measurements Intervals [place] Rate: 96 P: 17 TN: 174 QRS: 33 QRSD: 98 T: 28 QT: 355 QTc: 448 Interpretive Statements Sinus rhythm No previous ECG available for comparison Electronically Signed On 01-22-2022 18:24:58 EDT by Rick Figueroa
== END 2022-01-19 17:50 | disposition home or self-care (01) ==
LOC: ED 23:04
DX: R07.9 Chest pain, unspecified (principal); Z20.822 Contact with and (suspected) exposure to COVID-19; Z13.30 Encounter for screening examination for mental health and behavioral disorders, unspecified; F17.200 Nicotine dependence, unspecified, uncomplicated; I10 Essential (primary) hypertension; Z88.5 Allergy status to narcotic agent; J45.909 Unspecified asthma, uncomplicated
CPT/HCPCS: 36415; 71045; 80048; 80307; 81001; 83690; 84484; 85025; 93005; 99285; U0003; 80320; 99284; G0480